=== PATIENT | male | born 1985 | race Caucasian/White ===

== ENCOUNTER 2018-02-11 09:15 | Emergency (ER) | payer SELFPAY ==
[2018-02-11 09:40] VITALS: BP 113/80
--- NOTE | 2018-02-11 09:49 | UC ---
UC General HPI - HPI Summary HPI Summary: pt c/o 2-3 day hx pain and swelling to his L lower gum - History of Current Complaint Chief Complaint: UCDentalProblem Stated Complaint: ORAL CONCERN Time Seen by Provider: 02/11/18 09:32 Hx Obtained From: Patient Onset/Duration: Gradual Onset Timing: Constant Pain Intensity: 8 Alleviating: nothing Associated Signs & Symptoms: Positive: Other - bad teeth. Negative: Fever, Headache - Allergy/Home Medications Allergies/Adverse Reactions: Allergies Allergy/AdvReac Type Severity Reaction Status Date / Time No Known Allergies Allergy Verified 02/11/18 09:40 Home Medications: Home Medications Ibuprofen TAB* [Motrin TAB* 600 MG] 600 mg PO Q6H PRN 02/11/18 [History Confirmed 02/11/18] PMH/Surg Hx/FS Hx/Imm Hx Previously Healthy: Yes - Surgical History Surgical History: Yes Surgery Procedure, Year, and Place: left femur with metal ke other metal 2005 - Family History Known Family History: Positive: None - Social History Occupation: Employed Full-time Alcohol Use: Weekly Alcohol Amount: 24 beers Substance Use Type: None Smoking Status (MU): Former Smoker - Immunization History Vaccination Up to Date: Yes Review of Systems Constitutional: Negative Skin: Negative Eyes: Negative ENT: Other - pain/swell L lower back gum Respiratory: Negative Cardiovascular: Negative Gastrointestinal: Negative Genitourinary: Negative Motor: Negative Neurovascular: Negative Musculoskeletal: Negative Neurological: Negative Psychological: Negative Is Patient Immunocompromised?: No All Other Systems Reviewed And Are Negative: Yes Physical Exam Triage Information Reviewed: Yes Appearance: Well-Appearing Vital Signs: Initial Vital Signs Temp 98.8 F 02/11/18 09:31 Pulse 76 02/11/18 09:31 Resp 18 02/11/18 09:31 BP 113/80 02/11/18 09:31 Pulse Ox 98 02/11/18 09:31 Vital Signs Reviewed: Yes Eyes: Positive: Conjunctiva Clear ENT: Positive: Pharynx normal, TMs normal. Negative: Nasal congestion, Nasal drainage Dental: Positive: Gross Decay/Caries @ - back teeth, Abscess @ - L lower back gum but not fluctuant Neck: Positive: Supple, Nontender, No Lymphadenopathy Respiratory: Positive: Lungs clear, Normal breath sounds Cardiovascular: Positive: RRR, No Murmur Abdomen Description: Positive: Nontender, No Organomegaly, Soft Bowel Sounds: Positive: Present Musculoskeletal: Positive: ROM Intact Neurological: Positive: Alert Psychological: Positive: Age Appropriate Behavior Skin Exam: Normal Course/Dx - Course Course Of Treatment: exam c/w abscess to gum but not fluctuant thus no attempt to drain. - Differential Dx - Multi-Symptom Provider Diagnoses: Abscess L lower gum Discharge - Sign-Out/Discharge Documenting (check all that apply): Patient Departure - Discharge Plan Condition: Stable Disposition: HOME Prescriptions: Amoxicillin PO (*) [Amoxicillin 500 MG CAP*] 500 mg PO TID 10 Days #30 cap Patient Education Materials: Dental Abscess (ED) Referrals: Aneudy Ambriz DMD [Doctor of Dental Medicine] - As Soon As Possible - Billing Disposition and Condition Condition: STABLE Disposition: Home
== END 2018-02-11 10:00 | disposition home or self-care (01) ==
LOC: UCCORT 09:16
DX: K05.219 Aggressive periodontitis, localized, unspecified severity (principal); Z87.891 Personal history of nicotine dependence
CPT/HCPCS: 99202; G0463